=== PATIENT | female | born 1980 | race Caucasian/White ===

== ENCOUNTER → 2020-10-22 | Outpatient (CLI) | payer BC ==
--- NOTE | 2020-10-22 16:11 | REP ---
INDICATION: VENOUS INSUFFICIENCY. COMPARISON: None. TECHNIQUE: Bilateral lower extremity duplex venous scanning is performed from the groin to the ankle level. Bilateral lower extremity reflux evaluation was performed as well. FINDINGS: The deep veins are anechoic and fully compressible from the groin to the popliteal fossa in the left and right lower extremity. Color flow imaging is homogeneous. Spectral Doppler interrogation demonstrates intact respiratory variation in flow and normal manual augmentation of flow. There is no evidence of deep vein thrombosis in the femoropopliteal veins. There is no evidence of deep vein thrombosis in the visualized calf veins. Reflux study: In the right lower extremity there is 3.2nd duration reflux in the proximal greater saphenous vein, 3.2nd duration reflux in the mid greater saphenous vein, 6.2nd duration reflux in the distal greater saphenous vein. There is a large collateral off the mid greater saphenous vein. There is some deep system reflux as well in the proximal femoral vein on the right greater than 0.5 seconds in duration. The right greater saphenous vein measures 5.9 mm in AP dimension proximally, 4.2 mm at mid thigh, 4.1 mm at the knee. The right lesser saphenous vein does not reflux and measures 5 mm. In the left lower extremity, reflux was noted in the mid and distal segment of the greater saphenous vein where it is duration with 6.9 and 7.4 seconds respectively. The left greater saphenous vein diameters are 5.2 mm proximally, 3.6 mm at mid thigh, 4.7 mm at the knee. Mild deep system reflux is noted at the common femoral vein and the distal femoral vein segment greater than 0.5 seconds in duration. IMPRESSION: No evidence of DVT in the femoropopliteal veins. No DVT in the visible portions of the calf veins. Bilateral deep and superficial system reflux as above. <Electronically signed by Lavelle Carson > 10/22/20 [id number]
== END ==
LOC: M RAD 13:25
PROVIDERS: ATTEND Surgery Vascular Surgery
DX: R10.2 Pelvic and perineal pain (principal); I87.2 Venous insufficiency (chronic) (peripheral)

== ENCOUNTER → 2020-10-27 | Outpatient (CLI) | payer BC ==
[~2020-10-27] MED LIST: ISOVUE-370 76% 100ML VIAL As Ordered ONE
--- NOTE | 2020-10-27 19:09 | REP ---
INDICATION: PELVIC AND PERINEAL PAIN. COMPARISON: None TECHNIQUE: Standard helical technique after the intravenous administration of 100 cc Isovue 370. No oral bowel preparatory contrast was administered prior to the exam. FINDINGS: The lung bases are clear. The pre contrast enhanced portion examination shows a patent splenic densities to be within normal limits. There is no nephroureterolithiasis. There are no urinary bladder calcifications. There no cholelithiasis. The contrast-enhanced portion examination shows a 1.6 cm sized possibly slightly enhancing lesion in the posterior segment of the right lobe of the liver. This is seen only vaguely on the pre contrast enhanced exam. There is an even more vague smaller potential enhancing lesion in the anterior segment of the right lobe of the liver which measures approximately 1.2 cm.. The gallbladder, spleen, pancreas, adrenal glands, and kidneys are within normal limits. The abdominal aorta and para-aortic regions are within normal limits. The bowel loops and the mesenteries are within normal limits although seen in limited fashion without oral bowel preparatory contrast administration. There is a moderate amount of free pelvic fluid. The right adnexa there is an oval-shaped 3.9 cm sized low-density cystic-appearing structure which has slightly higher than water density Hounsfield unit readings The osseous structures are within normal limits. There is bilateral L5 spondylolysis. IMPRESSION: 1. Small liver lesions as described above. Etiology uncertain. Pre and post gadolinium enhanced hepatic MRI is recommended since are no priors for comparison. 2. There is free fluid in the pelvis seen in conjunction with what is likely a right ovarian cyst. It is possible that this has partially decompressed resulting in the free pelvic fluid, however, follow-up with pelvic ultrasonography should be considered. <Electronically signed by Alfredo Frost > 10/27/20 [id number]
== END ==
LOC: M RAD 17:42
PROVIDERS: ATTEND Surgery Vascular Surgery
DX: R10.2 Pelvic and perineal pain (principal); I87.2 Venous insufficiency (chronic) (peripheral); K76.9 Liver disease, unspecified; M43.06 Spondylolysis, lumbar region